=== PATIENT | female | born 1995 | race Caucasian/White ===

== ENCOUNTER 2020-01-15 00:01 | Inpatient (IN) ==
[2020-01-15] MEDS ORDERED: DEXTROSE 5%-LACTATED RINGERS 1,000 ML IV PRN (00:08)
[2020-01-15] MEDS ORDERED: PENICILLIN G POTASSIUM 5 MILLIONUNT in DEXTROSE 5 % IN WATER 100 ML IV ONE ×2 (00:08)
[2020-01-15] MEDS ORDERED: RINGER'S SOLUTION,LACTATED 1,000 ML IV ONE (00:08)
[2020-01-15] MEDS ORDERED: ONDANSETRON 4 MG TAB.RAPDIS PO PRN (00:08)
[2020-01-15] MEDS ORDERED: OXYTOCIN/DEXTROSE 5%-WATER 30 UNITS/500 ML BAG IV ONE (00:08)
[2020-01-15] MEDS: PENICILLIN G POTASSIUM 2.5 MILLIONUNT in DEXTROSE 5 % IN WATER 100 ML IV SCH ×10 (04:57→21:02)
--- NOTE | 2020-01-15 09:18 | HP ---
Chief Complaint - Chief Complaint Date of Service: 01/15/20 Time of Service: 09:16 Chief Complaint: induction of labor History of Present Illness: 24 yo at 39 3/7 weeks admitted for elective induction of labor. This without complications. Rh positive Rubella immune GBS positive Medical History (Last Reviewed 01/15/20 @ 12:37 by Anthony Butts DO) Abnormal Pap smear of cervix Onset Date: 2017 2017- 6mth recheck- abnormal, 2019- WNL Anemia Onset Date: 10/27/19 w/ Irregular menses controlled with OCP Surgical History: Surgical History (Last Reviewed 01/15/20 @ 12:37 by Anthony Butts DO) History of colposcopy Onset Date: 2017 2017- BECKI I Family History: Family History (Last Reviewed 01/15/20 @ 12:37 by Anthony Butts DO) Grandfather Diabetes Type 2 Heart disease Hypertension Grandmother Diabetes type 2 Mother Alive and well Father Alive and well Social History: (Last Reviewed 01/15/20 @ 12:37 by Anthony Butts DO) Social History: residential: No Marital status: household members: none, spouse current occupational status: employed current occupation: teacher Highest education level completed: Bachelor's degree Service: No Tobacco: Smoking Status: Never smoker Alcohol: alcohol intake: current alcohol intake frequency: holiday/special occasion Substance Use: substance use type: does not use Dietary Habits: caffeine: Yes caffeine comment: rare Exercise: Physical activity type: walking, running frequency: 3-4 times per week Review Of Systems (GEN) - Review of Systems Generalized/Overall Review: Present: No Symptoms Reported EENTM: Present: No Symptoms Reported Respiratory: Present: No Symptoms Reported Cardiac: Present: No Symptoms Reported Abdominal: Present: No Symptoms Reported Genitourinary: Present: No Symptoms Reported Musculoskeletal: Present: No Symptoms Reported Neurological: Present: No Symptoms Reported Skin: Present: No Symptoms Reported Endocrine: Present: No Symptoms Reported Allergies/Adverse Reactions: Allergies Allergy/AdvReac Type Severity Reaction Status Date / Time No Known Allergies Allergy Verified 01/15/20 00:10 Home Medications: HOME MEDICATIONS prenat.vits,darek,[id number] 1 tab PO DAILY 06/16/19 [Last Taken Unknown] ferrous sulfate 325 mg (65 mg iron) tablet 325 mg PO DAILY #30 tab 10/27/19 [Last Taken Unknown] ascorbic acid (vitamin C) 100 mg chewable tablet 100 mg PO DAILY 11/11/19 [Last Taken Unknown] breast pump See Rx Instructions .ROUTE .MEDSUPPLY #1 ea 11/24/19 [Last Taken Unknown] Exam - Exam Vital Signs: Vital Signs - Last Taken Temp 35.8 C L 01/15/20 01:00 Pulse 65 01/15/20 01:00 Resp 16 01/15/20 01:00 BP 121/83 01/15/20 01:00 Pulse Ox 98 01/15/20 01:00 Constitutional: Present: Alert, Oriented x3, Cooperative ENT Exam: Present: hearing grossly normal Neck: Present: non-tender Breasts: Present: Exam deferred Respiratory: Present: lungs clear, no respiratory distress Cardiovascular/Chest: Present: normal peripheral pulses, regular rate, rhythm Abdomen: Present: soft, nontender, no rebound tenderness, rebound tenderness /Rectal: Present: Other Extremity: Present: no pedal edema - Cervix - 2/75/-3, no calf tenderness Skin Exam: Present: normal color, warm/dry, no cyanosis Lymphatic: Present: no adenopathy Neurologic: Present: alert, normal mood/affect, oriented x 3 Appearance: Present: appropriate appearance, appropriate insight Eye contact: Present: cooperative, good eye contact, normal speech Thoughts: Present: normal thought pattern, normal mood /affect Assessment/Plan - Assessment/Plan (1) Encounter for induction of labor Assessment: Admit for pitocin induction of labor. Epidural PRN. IV PCN per GBS protocol. Problem: Acute (2) Group B Streptococcus carrier state affecting Problem: Acute
--- NOTE | 2020-01-15 12:36 | PN ---
Progess Note - Interim Date: 01/15/20 Time: 12:25 Narrative: 01/15/20 12:25 Patient becoming more uncomfortable with contractions Vital signs stable. FHT: 140 baseline, reassuring contractions q 2-3 min Cervix: 3-4/90/-2, AROM-clear Impression: Intrauterine at 39-3/7 weeks induction of labor Plan: Epidural PRN. Encourage position changes and hot shower/tub.
[2020-01-15] MEDS ORDERED: NALOXONE HCL 1 MG/1 ML SYRG IV PRN (16:27)
[2020-01-15] MEDS ORDERED: ONDANSETRON HCL/PF 2 MG/ML VIAL IV PRN (16:27)
[2020-01-15] MEDS ORDERED: BUPIVACAINE HCL/0.9 % NACL/PF 250 ML EP PRN (16:27)
[2020-01-15] MEDS ORDERED: fentaNYL CITRATE/PF 50 MCG/ML AMPUL IT SCH (16:30)
--- NOTE | 2020-01-15 18:05 | ANES ---
Post Anesthesia Discharge - Transfer of Care Transfer of Care handoff given to nurse: Yes - Anesthesia Post Op Note Anesthesia Post Op Note: Care transferred to OB RN
--- NOTE | 2020-01-15 18:05 | ANES ---
Post Anesthesia Assessment - Vital Signs Vitals: Last Vital Signs Temp 37.3 C 01/15/20 17:53 Pulse 90 01/15/20 17:53 Resp 18 01/15/20 17:53 BP 135/85 01/15/20 17:53 Pulse Ox 99 01/15/20 17:53 Airway Patency: Normal - Mental Status Level Of Consciousness: Awake - Pain Level Pain Score: 2 - N/V Assessment Nausea/Vomiting Presence: None Dehydration:: No
--- NOTE | 2020-01-15 18:05 | ANES ---
Anesthesia Pre Procedure Eval Vitals/Labs: Last Vital Signs Temp 37.3 C 01/15/20 17:53 Pulse 90 01/15/20 17:53 Resp 18 01/15/20 17:53 BP 135/85 01/15/20 17:53 Pulse Ox 99 01/15/20 17:53 HOME MEDICATIONS prenat.vits,darek,[id number] 1 tab PO DAILY 06/16/19 [Last Taken Unknown] ferrous sulfate 325 mg (65 mg iron) tablet 325 mg PO DAILY #30 tab 10/27/19 [Last Taken Unknown] ascorbic acid (vitamin C) 100 mg chewable tablet 100 mg PO DAILY 11/11/19 [Last Taken Unknown] breast pump See Rx Instructions .ROUTE .MEDSUPPLY #1 ea 11/24/19 [Last Taken Unknown] Allergies/Adverse Reactions: Allergies Allergy/AdvReac Type Severity Reaction Status Date / Time No Known Allergies Allergy Verified 01/15/20 00:10 - Planned Procedure Planned Procedure: Induction Medication List Reviewed:: Yes Allergies Verified: Yes Medical History (Last Reviewed 01/15/20 @ 18:04 by Shayne Burns CRNA) Abnormal Pap smear of cervix Onset Date: 2017 2017- recheck- abnormal, 2019- WNL Anemia Onset Date: 10/27/19 w/ Irregular menses controlled with OCP Surgical History (Last Reviewed 01/15/20 @ 18:04 by Shayne Burns CRNA) History of colposcopy Onset Date: 2017 2017- BECKI I Family History (Last Reviewed 01/15/20 @ 18:04 by Shayne Burns CRNA) Grandfather Diabetes Type 2 Heart disease Hypertension Grandmother Diabetes type 2 Mother Alive and well Father Alive and well - Family Anesthesia History Family History:: no untoward family reactions to anesthesia - Airway/Neck/Teeth Within Normal Limits:: Yes Teeth Condition: intact Denture Type: None Neck Exam: full range of motion Mallampatti Score: 1 Thyromental (T-M) distance: > 6 cm Mandibulo Hyoid distance: > 3 cm - Respiratory Respiratory Physical: lungs clear Smoking Status: Never smoker Sleep Apnea currently treated: No Sleep Apnea by current assessment: No - Cardiovascular Tolerate Activity: Good Heart Sounds: S1 & S2, Regular - Gastrointestinal NPO since: 1200 - Anesthesia Assessment and Plan ASA Class: PS, II, E Anesthesia Type Plan: Epidural Planned difficult intubation/equipment available: No
--- NOTE | 2020-01-15 18:07 | ANES ---
Anesthesia Procedure Note Procedure Note: ANESTHESIA PROCEDURE NOTE Date of Procedure: 01/15/2020 Time of procedure: 1839. Performed by: Bryn Burns CRNA Communications Superintendent: None. Preprocedure diagnosis: Active labor. Post procedure diagnosis: Same. Procedure: Insertion of labor epidural. Indications: The patient is a 24-year-old prima para female in active labor requesting labor epidural for pain management. Findings: See below. Details of the procedure: The patient was placed in a sitting position. Back was prepped with DuraPrep. Patient was then draped in a sterile fashion. Lidocaine 1% was infiltrated to the skin and subcutaneous tissues at the level of the L3 4 interspace. The epidural space was identified using a 18-gauge Tuohy needle with [id number] technique. 20 mcg fentanyl was given intrathecally using a 27 ga. spinal needle. Epidural catheter was inserted without difficulty. Negative test dose was elicited using 5 mL of 1.5% preservative-free lidocaine plus epinephrine 1 200,000. The epidural catheter was then taped and secured in place. EBL: Minimal. Fluids: N/A. Specimen: N/A. Post procedure condition: The patient tolerated the procedure well. No complications were noted. Thank you for this consultation. Means CRNA
[2020-01-16] MEDS ORDERED: HYDROCORTISONE 30 APPL TUBE TP PRN (00:45)
[2020-01-16] MEDS ORDERED: SENNOSIDES 8.6 MG TABLET PO PRN (00:45)
[2020-01-16] MEDS ORDERED: OXYTOCIN/DEXTROSE 5%-WATER 30 UNITS/500 ML BAG IV ONE (00:45)
[2020-01-16] MEDS ORDERED: BISACODYL 10 MG SUPP.RECT RC PRN (00:45)
[2020-01-16] MEDS ORDERED: BENZOCAINE/MENTHOL 81 SPRAY CAN TP PRN (00:45)
[2020-01-16] MEDS ORDERED: GLYCERIN/WITCH HAZEL LEAF 40 APPL BOX TP PRN (00:45)
--- NOTE | 2020-01-16 00:48 | OR ---
Operative Report - Dictated Report Narrative: Spontaneous vaginal delivery of viable female at 0007 on 01/16/2020 with Apgars 8 and 9, weighing 2912 g in TONIA position with tight nuchal cord x1. Cord clamping delayed approximately 1 minute Placenta delivered complete, intact, with three vessel cord Estimated blood loss: 150 mL Anesthesia: Epidural Lacerations: First-degree left labial laceration and first-degree clitoral loving laceration repaired with 4-0 Vicryl Rapide History for MU History for Definition: * The number of deliveries resulting in a live the patient experienced prior to current hospitalization * The previous delivery of live twins or any live multiple gestation is considered one live event. *If primagravida or nulliparous is documented select zero for the number of previous live births. Live Events: Live Events: 0
[2020-01-16] MEDS ORDERED: NON-FORMULARY 1 DOSE DOSE (Breast Pump 0 UNIT) SCH (01:00)
[2020-01-16] MEDS: IBUPROFEN 800 MG TABLET PO PRN ×3 (01:43→21:15)
[2020-01-16] MEDS: oxyCODONE HCL/ACETAMINOPHEN 1 TAB TABLET PO PRN ×3 (02:34→09:58)
[2020-01-16] MEDS: PRENATAL VITS96/IRON FUM/FOLIC 1 TAB TABLET PO SCH (08:05)
[2020-01-16] MEDS: DOCUSATE SODIUM 100 MG CAPSULE PO SCH ×2 (08:05→21:15)
[2020-01-16] MEDS: FERROUS SULFATE 325 MG TABLET PO SCH (08:05)
[2020-01-16] MEDS ORDERED: MISOPROSTOL 100 MCG TABLET ONE (09:22)
[2020-01-16] MEDS: METHYLERGONOVINE MALEATE 0.2 MG/ML VIAL IM SCH ×2 (09:28→17:15)
[2020-01-16] MEDS: MISOPROSTOL 200 MCG TABLET PO SCH ×2 (09:38→17:14)
--- NOTE | 2020-01-16 14:32 | PN ---
Subjective - Date and Time Seen Date: 01/16/20 Time: 14:08 Objective Objective Narrative: Since delivery at 0007 this a.m. of vaginal bleeding. First episode patient passed approximately 300 mL of clot. Second episode patient passed approximately 150 mL of clot. She experienced temporary lightheadedness/dizziness with each episode but rapidly improved. In addition to her IV Pitocin patient was started on 0.2 mg of Methergine IM every 8 hours and Cytotec 200 mcg orally every 8 hours. Since starting this regimen the patient's bleeding has been minimal with no further passing of clots. Patient remains asymptomatic. - Review of Systems Generalized/Overall Review: Reports: No Symptoms Reported EENTM: Reports: No Symptoms Reported Respiratory: Reports: No Symptoms Reported Cardiac: Reports: No Symptoms Reported Abdominal: Reports: Other - cramoy Musculoskeletal Complaints: Reports: No Symptoms Reported Neurological: Reports: No Symptoms Reported Skin: Reports: No Symptoms Reported Endocrine: Reports: No Symptoms Reported - Vitals Vitals: Last Vital Signs Temp 37.0 C 01/16/20 06:52 Pulse 107 H 01/16/20 06:52 Resp 16 01/16/20 06:52 BP 128/79 01/16/20 06:52 Pulse Ox 98 01/16/20 06:52 - Exam Constitutional: Present: Alert, Oriented x3, Cooperative, No distress ENT Exam: Present: hearing grossly normal Breasts: Present: Exam deferred Respiratory: Present: no respiratory distress Cardiovascular/Chest: Present: tachycardia - mild. Absent: edema Abdomen: Present: soft, nontender, no rebound tenderness. Absent: rebound tenderness /Rectal: Present: Other - Light/moderate lochia. Min/mod vulvar edema. Uterus at U, NT, firm, mobile. Skin Exam: Present: normal color, warm/dry, no cyanosis Neurologic: Present: alert, normal mood/affect, oriented x 3 Appearance: Present: appropriate appearance, appropriate insight Eye contact: Present: cooperative, good eye contact Thoughts: Present: normal thought pattern, normal mood /affect Cauti Physician Documentation - Urinary Catheter Management Urethral (Mann) Date of Insertion: 01/15/20 Time of Insertion: 18:09 Date of Removal: 01/15/20 Time of Removal: 23:30 Assessment/Plan - Problems/Diagnosis (1) Encounter for induction of labor Problem: Resolved (2) Group B Streptococcus carrier state affecting Problem: Resolved (3) hemorrhage Problem: Acute Qualifiers: hemorrhage type: delayed hemorrhage Qualified Code(s): O72.2 - Delayed and secondary hemorrhage Narrative: uterine atony. EBL 650ml since delivery. responded well to IV Pitocin, Cytotec, and Methergine IM. We will continue to monitor patient closely.
[2020-01-17] MEDS: MISOPROSTOL 200 MCG TABLET PO SCH (01:29)
[2020-01-17] MEDS: METHYLERGONOVINE MALEATE 0.2 MG/ML VIAL IM SCH (01:30)
--- NOTE | 2020-01-17 07:00 | PN ---
Subjective - Date and Time Seen Date: 01/17/20 Time: 06:58 Objective - Vitals Vitals: Last Vital Signs Temp 37.0 C 01/16/20 06:52 Pulse 90 01/17/20 01:32 Resp 16 01/17/20 01:32 BP 112/69 01/17/20 01:32 Pulse Ox 99 01/16/20 18:40 Patient denies complaints. Breast-feeding Lochia wnl abdomen - soft, nontender Uterus -firm, at umbilicus - 2 No calf tenderness Impression: day #1 - s/p spontaneous vaginal delivery. hemorrhage due to uterine atony-resolved Plan: Continue routine care Cauti Physician Documentation - Urinary Catheter Management Urethral (Mann) Date of Insertion: 01/15/20 Time of Insertion: 18:09 Date of Removal: 01/15/20 Time of Removal: 23:30 Assessment/Plan - Problems/Diagnosis (1) Encounter for induction of labor Problem: Resolved (2) Group B Streptococcus carrier state affecting Problem: Resolved (3) hemorrhage Problem: Acute Qualifiers: hemorrhage type: delayed hemorrhage Qualified Code(s): O72.2 - Delayed and secondary hemorrhage
[2020-01-17] MEDS: PRENATAL VITS96/IRON FUM/FOLIC 1 TAB TABLET PO SCH (08:33)
[2020-01-17] MEDS: FERROUS SULFATE 325 MG TABLET PO SCH (08:33)
[2020-01-17] MEDS: DOCUSATE SODIUM 100 MG CAPSULE PO SCH ×2 (08:33→20:55)
[2020-01-17] MEDS: IBUPROFEN 800 MG TABLET PO PRN ×2 (08:35→17:06)
[2020-01-18 08:04] VITALS: BP 110/75
[2020-01-18] MEDS: DOCUSATE SODIUM 100 MG CAPSULE PO SCH (09:46)
[2020-01-18] MEDS: FERROUS SULFATE 325 MG TABLET PO SCH (09:46)
[2020-01-18] MEDS: PRENATAL VITS96/IRON FUM/FOLIC 1 TAB TABLET PO SCH (09:46)
[2020-01-18] MEDS: IBUPROFEN 800 MG TABLET PO PRN (09:47)
--- NOTE | 2020-01-18 11:13 | PN ---
Subjective - Date and Time Seen Date: 01/18/20 Time: 11:12 Objective - Vitals Vitals: Last Vital Signs Temp 36.6 C 01/18/20 06:55 Pulse 77 01/18/20 06:55 Resp 18 01/18/20 06:55 BP 110/75 01/18/20 06:55 Pulse Ox 100 01/18/20 01:42 Patient denies complaints. Breast-feeding well Lochia wnl abdomen - soft, nontender Uterus -firm, at umbilicus - 2 no calf tenderness Impression: day #2 - s/p spontaneous vaginal delivery. Plan: Routine discharge instructions Cauti Physician Documentation - Urinary Catheter Management Urethral (Mann) Date of Insertion: 01/15/20 Time of Insertion: 18:09 Date of Removal: 01/15/20 Time of Removal: 23:30 Assessment/Plan - Problems/Diagnosis (1) Encounter for induction of labor Problem: Resolved (2) Group B Streptococcus carrier state affecting Problem: Resolved (3) hemorrhage Problem: Resolved Qualifiers: hemorrhage type: delayed hemorrhage Qualified Code(s): O72.2 - Delayed and secondary hemorrhage
== END 2020-01-18 13:30 | disposition home or self-care (01) | DRG 768 ==
LOC: OB 00:04
PROVIDERS: ADMIT Obstetrics & Gynecology; ATTEND Obstetrics & Gynecology
CPT/HCPCS: 59025